=== PATIENT | female | born 1945 | race Caucasian/White ===

== ENCOUNTER 2017-07-18 12:00 | Emergency (ER) | payer OTHER ==
[~2017-07-18] VITALS: Ht 152.4 cm; Wt 71.2 kg
[2017-07-18] MEDS ORDERED: INVOKANA300 MG (12:32)
[2017-07-18] MEDS ORDERED: GLIMEPIRIDE4 MG (12:32)
[2017-07-18] MEDS ORDERED: PLAVIX75 MG (12:33)
[2017-07-18] MEDS ORDERED: CARVEDILOL25 MG (12:33)
[2017-07-18] MEDS ORDERED: NORVASC5 MG (12:33)
[2017-07-18] MEDS ORDERED: AVALIDE 300-121 EACH (12:33)
[2017-07-18] MEDS ORDERED: LIPITOR40 MG (12:33)
== END 2017-07-18 15:19 | disposition home or self-care (01) ==
LOC: ER 12:00
DX: M54.89 Other dorsalgia (principal); E11.65 Type 2 diabetes mellitus with hyperglycemia